=== PATIENT | male | born 1940 | race Caucasian/White ===

== ENCOUNTER 2020-08-12 09:28 | Day surgery (SDC) | payer OTHER, BC ==
[2020-08-05 10:38] VITALS: BMI 37.2
--- OUTSIDE RECORDS SUMMARY | 2020-08-12 09:35 | XMS ---
:1940 Author Organization [facility] Care Team Providers Name Role Phone Androne Manan C Unavailable Androne, C Unavailable Androne, C Unavailable Androne, C Unavailable Androne, C Unavailable Androne, C Unavailable Androne, C Unavailable Androne, C Unavailable Androne, C Unavailable Fader, M Unavailable Fader, M Unavailable Fader, M Unavailable Fader, M Unavailable Fader, M Unavailable Fader, M Unavailable Fader, M Unavailable Fader, M Unavailable Fader, M Unavailable Fader, M Unavailable Fader, M Unavailable Fader, M Unavailable Fader, M Unavailable Fader, M Unavailable Re-disclosure Warning The records that you are about to access may contain information from federally- assisted alcohol or drug abuse programs. If such information is present, then the following federally mandated warning applies: This information has been disclosed to you from records protected by federal confidentiality rules (42 CFR part 2). The federal rules prohibit you from making any further disclosure of this information unless further disclosure is expressly permitted by the written consent of the person to whom it pertains or as otherwise permitted by 42 CFR part 2. A general authorization for the release of medical or other information is NOT sufficient for this purpose. The Federal rules restrict any use of the information to criminally investigate or prosecute any alcohol or drug abuse patient.The records that you are about to access may contain highly sensitive health information, the redisclosure of which is protected by Article 27-F of the [facility] Public Health law. If you continue you may haveaccess to information: Regarding HIV / AIDS; Provided by facilities licensed or operated by the [facility] Office of Mental Health; or Provided by the [facility] Office for People With Developmental Disabilities. If such information is present, then the following [facility] mandated warning applies: This information has been disclosed to you from confidential records which are protected by state law. State law prohibits you from making any further disclosure of this information without the specific written consent of the person to whom it pertains, or as otherwise permitted by law. Any unauthorized further disclosure in violation of state law may result in a fine or custodial sentence or both. A general authorization for the release of medical or other information is NOT sufficient authorization for further disclosure. Encounters Encounter Providers Location Date Indications Data Source(s ) Attender: Manan 07/28/2020 [facility] ([facility] 12:00:00 AM [facility]T [facility]) Office Attender: Manan Faulkner 07/28/2020 12:00:00 AM EDT [facility] ([facility] Office Attender: Manan Faulkner 07/28/2020 12:00:00 AM EDT [facility] ([facility] Office Attender: Manan Faulkner 07/28/2020 12:00:00 AM EDT [facility] ([facility] Office Attender: Manan Faulkner 07/28/2020 12:00:00 AM EDT [facility] ([facility]) Office Attender: Ganesh Rose 05/22/2020 12:00:00 AM E DT [facility] ([facility]) Office Attender: Ganesh Rose 05/22/2020 12:00:00 AM E DT [facility] ([facility]) Office Attender: Ganesh Rose 05/22/2020 12:00:00 AM E DT [facility] ([facility]) Office Attender: Ganesh Rose 05/22/2020 12:00:00 AM E DT [facility] ([facility]) Office Attender: Ganesh Rose 05/22/2020 12:00:00 AM E DT [facility] ([facility]) Office Attender: Ganesh Rose 05/22/2020 12:00:00 AM E DT [facility] ([facility]) Office Attender: Ganesh Rose 05/22/2020 12:00:00 AM E DT [facility] ([facility]) Office Medications Medication Brand Start Product Dose Route Administrative Pharmacy [facility] Indications Reaction Description Data Name Date Form Instructions Instructions Source(s) atorvastati ATORVA 05/22/ TABLET 90 complet ATOR VASTATIN [facility] (St n 10 MG STATIN 2019 ed [facility] Tablet :19833 12:00: Medi jennifer, ATORVASTATI 2 00 AM ) [id number] EDT atorvastati ATORVA 05/22/ TABLET 90 complet ATOR VASTATIN [facility] (St n 10 MG STATIN 2019 ed [facility] Oral Tablet :38177 12:00: Medi jennifer, ATORVASTATI 2 00 AM ) [id number] EDT Allopurinol ALLOPU 05/22/ TABLET 180 complet ALLO PURINOL [facility] (St 100 MG Oral RINOL: 2020 ed [facility] Tablet [id number] 12:00: Medical, ALLOPURINOL 00 AM ) :[id number] EDT Hydrochloro HYDROC 05/22/ TABLET 90 complet HYDR OCHLOROT [facility] (St thiazide 25 HLOROT 2020 ed HIAZIDE Lit n's MG Oral HIAZID 12:00: Medical, Tablet E:3107 00 AM ) HYDROCHLORO 98 EDT THIAZIDE:31 0798 Furosemide FUROSE 05/22/ TABLET 30 complet FUROS EMIDE [facility] (St 40 MG Oral MIDE:3 2019 ed [facility] Tablet 76038 12:00: Medical, FUROSEMIDE: 00 AM PC) [id number] EDT valsartan VALSAR 05/22/ TABLET 90 complet VALSAR FREDERICK [facility] (St 160 MG Oral FREDERICK:34 2019 ed [facility] Tablet 9201 12:00: Medical, VALSARTAN:3 00 AM PC) [id number] EDT valsartan VALSAR 05/22/ TABLET 90 complet VALSAR FREDERICK [facility] (St 160 MG Oral FREDERICK:34 2019 ed [facility] Tablet 9201 12:00: Medical, VALSARTAN:3 00 AM PC) [id number] EDT Tamsulosin TAMSUL 05/22/ CAPSULE 90 complet TAMS ULOSIN [facility] (St hydrochlori OSIN:8 2019 ed [facility] de 0.4 MG 87005 12:00: Medical , Oral 00 AM PC) Capsule EDT TAMSULOSIN: [id number] Tamsulosin TAMSUL 05/22/ CAPSULE 90 complet TAMS ULOSIN [facility] (St hydrochlori OSIN:8 2019 ed [facility] de 0.4 [place] 20450 12:00: Medical , Oral 00 AM PC) Capsule EDT TAMSULOSIN: 178374 Allopurinol ALLOPU 05/22/ TABLET 180 complet ALLO PURINOL [facility] (St 100 MG Oral RINOL: 2020 ed [facility] Tablet [id number] 12:00: Medical, ALLOPURINOL 00 AM PC) :[id number] EDT Hydrochloro HYDROC 05/22/ TABLET 90 complet HYDR OCHLOROT [facility] (St thiazide 25 HLOROT 2019 ed HIAZIDE [facility] MG Oral HIAZID 12:00: Medical, Tablet E:3107 00 AM PC) HYDROCHLORO 98 EDT THIAZIDE:31 0798 Furosemide FUROSE 05/22/ TABLET 30 complet FUROS EMIDE [facility] (St 40 MG Oral MIDE:3 2019 ed [facility] Tablet 04946 12:00: Medical, FUROSEMIDE: 00 AM PC) [id number] EDT Insurance Providers Payer name Policy type Policy ID Covered Covered constitution party's Policy P blanca / Coverage constitution party ID relationship to [employer] ormation type dunn MEDICARE [id number] SP [id number] BC PPO [id number] SP [id number] 12 2 [place] [id number] 1 [id number] PART B 5 DOWNSTATE [employer] [id number] 1 [id number] 12 [facility] 2 E [employer] [place] MEDIC[place] [id number] SP [id number] 5 [place] [id number] 1 [id number] PART B 5 DOWNSTATE Problems, Conditions, and Diagnoses Code Display Name Description Problem Type Effective Data Sour ce(s) Dates H26.9 Unspecified UNSPECIFIED Problem 07/28/2020 [facility] (St cataract CATARACT 12:00:00 AM [facility]) Z01.818 Encounter for other ENCOUNTER FOR Problem 07/28/2020 ME DGEN (St preprocedural OTHER 12:00:00 AM [facility] examination PREPROCEDURAL EDT Medical, P C) EXAMINATION Z85.21 Personal history of PERSONAL HISTORY Problem 10/26/2019 [facility] (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 EST Medica l, PC) I87.2 Venous VENOUS Problem 10/26/2019 [facility] (St insufficiency INSUFFICIENCY 12:00:00 AM [facility] (chronic) (CHRONIC) EST Medical, PC) (peripheral) (PERIPHERAL) E78.5 Hyperlipidemia, HYPERLIPIDEMIA, Problem 10/26/2019 MEDG EN (St unspecified UNSPECIFIED 12:00:00 AM [facility] EST Medical, ) E66.09 Other obesity due OTHER OBESITY DUE Problem 10/26/2019 [facility] (St to excess calories TO EXCESS CALORIES 12:00:00 AM [facility] EST Medical, ) N40.1 Benign prostatic ENLARGED PROSTATE Problem 10/26/2019 M ISABELLAN (St hyperplasia with WITH LOWER URINARY 12:00:00 AM [facility] lower urinary tract TRACT SYMPTOMS EST edical, PC) symptoms M10.9 Gout, unspecified GOUT, UNSPECIFIED Problem 10/26/2019 [facility] (St 12:00:00 AM [facility] EST Medical, ) I10 Essential (primary) ESSENTIAL Problem 10/26/2019 MEDGE N (St hypertension (PRIMARY) 12:00:00 AM [facility] HYPERTENSION EST Medical, ) Z85.21 Personal history of PERSONAL HISTORY Problem 10/26/2019 [facility] (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 EST Medica l, ) I87.2 Venous VENOUS Problem 10/26/2019 [facility] (St insufficiency INSUFFICIENCY 12:00:00 AM [facility] (chronic) (CHRONIC) [facility] Medical, ) (peripheral) (PERIPHERAL) E78.5 Hyperlipidemia, HYPERLIPIDEMIA, Problem 10/26/2019 MEDG EN (St unspecified UNSPECIFIED 12:00:00 AM [facility], ) E66.09 Other obesity due OTHER OBESITY DUE Problem 10/26/2019 MED[facility] (St to excess calories TO EXCESS CALORIES 12:00:00 AM [facility], ) N40.1 Benign prostatic ENLARGED PROSTATE Problem 10/26/2019 M TADEO (St hyperplasia with WITH LOWER URINARY 12:00:00 AM [facility] lower urinary tract TRACT SYMPTOMS EST sraah, ) symptoms M10.9 Gout, unspecified GOUT, UNSPECIFIED Problem 10/26/2019 [facility] (St 12:00:00 AM [facility], ) I10 Essential (primary) ESSENTIAL Problem 10/26/2019 MEDGE N (St hypertension (PRIMARY) 12:00:00 AM [facility] HYPERTENSION [facility], ) Surgeries/Procedures Procedure Description Date Indications Data Source(s) Documentation of current 07/28/2020 [facility] ([facility] (procedure) 12:00:00 AM EDT YASMIN Pina) Documentation of current 07/28/2020 [facility] ([facility] (procedure) 12:00:00 AM EDT YASMIN Pina) Documentation of current 07/28/2020 [facility] ([facility] (procedure) 12:00:00 AM EDT YASMIN Pina) Documentation of current 07/28/2020 [facility] ([facility] (procedure) 12:00:00 AM EDT YASMIN Pina) Documentation of current 07/28/2020 [facility] ([facility] (procedure) 12:00:00 AM EDT YASMIN Pina) Documentation of current 07/28/2020 [facility] ([facility] (procedure) 12:00:00 AM EDT YASMIN Pina) Documentation of current 07/28/2020 [facility] ([facility] medications (procedure) 12:00:00 AM EDT [facility], ) ECG ROUTINE ECG W/LEAST 07/28/2020 MED[facility] EN ([facility] 12 LDS W/I&R 12:00:00 AM [facility], ) Documentation of current 05/22/2020 MED [facility] ([facility] medications (procedure) 12:00:00 AM T [facility], ) Documentation of current 05/22/2020 [facility] ([facility] (procedure) 12:00:00 AM T [facility], ) Documentation of current 05/22/2020 [facility] ([facility] (procedure) 12:00:00 AM T [facility], ) Documentation of current 05/22/2020 [facility] ([facility] (procedure) 12:00:00 AM T [facility], ) Documentation of current 05/22/2020 [facility] ([facility] (procedure) 12:00:00 AM T [facility], ) Documentation of current 05/22/2020 [facility] ([facility] (procedure) 12:00:00 AM T [facility], ) Documentation of current 05/22/2020 [facility] ([facility] (procedure) 12:00:00 AM T [facility], ) Documentation of current 05/22/2020 [facility] ([facility] (procedure) 12:00:00 AM T [facility], ) Documentation of current 05/22/2020 [facility] ([facility] (procedure) 12:00:00 AM T [facility], ) Annual wellness visit, 05/22/2020 MEDGE N ([facility] includes a personalized 12:00:00 AM EDT [facility], ) prevention plan of service (pps), subsequent visit ECG ROUTINE ECG W/LEAST 05/22/2020 MED[facility] EN ([facility] 12 LDS W/I&R 12:00:00 AM [facility], ) Documentation of current 05/22/2020 [facility] ([facility] (procedure) 12:00:00 AM T [facility], ) Documentation of current 05/22/2020 [facility] ([facility] (procedure) 12:00:00 AM T [facility], ) Documentation of current 05/22/2020 [facility] ([facility] (procedure) 12:00:00 AM YASMIN Brown) Documentation of current 05/22/2020 [facility] ([facility] (procedure) 12:00:00 AM YASMIN Brown) Documentation of current 05/22/2020 [facility] ([facility] (procedure) 12:00:00 AM YASMIN Brown) Annual wellness visit, 05/22/2020 MEDGE N ([facility] includes a personalized 12:00:00 AM YASMIN Brown) prevention plan of service (pps), subsequent visit ECG ROUTINE ECG W/LEAST 05/22/2020 [facility] EN ([facility] 12 LDS W/I&R 12:00:00 AM YASMIN Hancock) Documentation of current 11/16/2019 [facility] ([facility] (procedure) 12:00:00 AM YASMIN Win) Documentation of current 11/16/2019 [facility] ([facility] (procedure) 12:00:00 AM YASMIN Win) Documentation of current 11/16/2019 [facility] ([facility] (procedure) 12:00:00 AM YASMIN Win) Documentation of current 11/16/2019 [facility] ([facility] (procedure) 12:00:00 AM YASMIN Win) Documentation of current 11/16/2019 [facility] ([facility] (procedure) 12:00:00 AM YASMIN Win) Documentation of current 11/16/2019 [facility] ([facility] (procedure) 12:00:00 AM YASMIN Win) Documentation of current 11/16/2019 [facility] ([facility] (procedure) 12:00:00 AM YASMIN Win) OFFICE OUTPATIENT VISIT 11/16/2019 MED[facility] EN ([facility] 15 MINUTES 12:00:00 AM YASMIN Forbes) Documentation of current 11/16/2019 MED [facility] ([facility] (procedure) 12:00:00 AM YASMIN Win) Documentation of current 11/16/2019 [facility] ([facility] (procedure) 12:00:00 AM YASMIN Win) Documentation of current 11/16/2019 [facility] ([facility] (procedure) 12:00:00 AM YASMIN Win) Documentation of current 11/16/2019 [facility] ([facility] (procedure) 12:00:00 AM YASMIN Win) Documentation of current 11/16/2019 [facility] ([facility] (procedure) 12:00:00 AM YASMIN Win) Documentation of current 11/16/2019 [facility] ([facility] (procedure) 12:00:00 AM YASMIN Win) OFFICE OUTPATIENT VISIT 11/16/2019 [facility] EN ([facility] 15 MINUTES 12:00:00 AM YASMIN Forbes) Documentation of current 10/26/2019 [facility] ([facility] (procedure) 12:00:00 AM YASMIN Win) Documentation of current 10/26/2019 [facility] ([facility] (procedure) 12:00:00 AM YASMIN Win) Documentation of current 10/26/2019 [facility] ([facility] (procedure) 12:00:00 AM YASMIN Win) Documentation of current 10/26/2019 [facility] ([facility] (procedure) 12:00:00 AM YASMNI Win) Documentation of current 10/26/2019 [facility] ([facility] (procedure) 12:00:00 AM YASMIN Win) Documentation of current 10/26/2019 [facility] ([facility] (procedure) 12:00:00 AM YASMIN Win) Documentation of current 10/26/2019 [facility] ([facility] (procedure) 12:00:00 AM YASMIN Win) Documentation of current 10/26/2019 [facility] ([facility] (procedure) 12:00:00 AM YASMIN Win) Documentation of current 10/26/2019 [facility] ([facility] (procedure) 12:00:00 AM YASMIN Win) Documentation of current 10/26/2019 [facility] ([facility] (procedure) 12:00:00 AM YASMIN Win) Documentation of current 10/26/2019 [facility] ([facility] (procedure) 12:00:00 AM YASMIN Win) Documentation of current 10/26/2019 [facility] ([facility] (procedure) 12:00:00 AM [facility]) Documentation of current 10/26/2019 [facility] ([facility] (procedure) 12:00:00 AM YASMIN Win) Documentation of current 10/26/2019 [facility] ([facility] (procedure) 12:00:00 AM [facility]IANA sm[facility] PC) Documentation of current 10/26/2019 [facility] ([facility] (procedure) 12:00:00 AM YASMIN Win) Documentation of current 10/26/2019 [facility] ([facility] (procedure) 12:00:00 AM ILIANA smith PC) Documentation of current 10/26/2019 [facility] ([facility] (procedure) 12:00:00 AM YASMIN Win) Results ID Date Data Source [id number] 08/08/2020 09:45:00 AM EDT [facility] Name Value Range Interpretation Description Data Sup porting Code Source(s) Document(s ) SARS [facility] coronavirus 2 RNA This lab was ordered by LIZBETH MAGALLANES and reported by [facility]. Procedure Social History Code Duration Value Status Description Data Source(s ) Smoking 07/31/2020 Marital status: completed Marital status: MEDG EN (St 12:00:00 AM EDT - had - h ad [facility], TAVR 11/19-age 76 TAVR 11/19-age 76 PC ) Children: 3 Children: 3 Occupation: Occupation: retired retired - real - real estate estate Tobacco Tobacco use: former use: former smoker - quit 1982 smoker - quit Alcohol use: 2 1982 Alcohol cocktail every use: 2 cocktail night every night Smoking 07/31/2020 Unknown if ever completed Unknown if ever MEDG EN (St 12:00:00 AM EDT smoked smoked [facility]) Smoking 05/22/2020 Marital status: completed Marital status: MEDG EN (St 12:00:00 AM EDT - had - h ad [facility], TAVR 11/19-age 76 TAVR 11/19-age 76 PC ) Children: 3 Children: 3 Occupation: Occupation: retired retired - real - real estate estate Tobacco Tobacco use: former use: former smoker - quit 1982 smoker - quit Alcohol use: 2 1982 Alcohol cocktail every use: 2 cocktail night every night Smoking 05/22/2020 Unknown if ever completed Unknown if ever MEDG EN (St 12:00:00 AM EDT smoked smoked [facility], ) Vital Signs ID Date Data Source UNK Name Value Range Interpretation Code Description Data Source(s) Heart rate 90 /min 90 /min [facility] ([facility] ) Respiratory rate 17 /min 17 /min [facility] ( [facility]) Body mass index 37.7 kg/m2 37.7 kg/m2 MED[facility] (S t (BMI) [Ratio] [facility]) Diastolic blood 74 mm[Hg] 74 mm[Hg] MED[facility] (S t pressure [facility]) Systolic blood 128 mm[Hg] 128 mm[Hg] [facility] ([facility]) Body weight 278 lb 278 lb [facility] ([facility]) Body height 72 in 72 in [facility] ([facility]) Heart rate 91 /min 91 /min [facility] ([facility]) Inhaled oxygen 94 % 94 % [facility] ([facility]) Body mass index 38.6 kg/m2 38.6 kg/m2 MED[facility] (S t (BMI) [Ratio] [facility] [place], ) Diastolic blood 78 mm[Hg] 78 mm[Hg] MED[facility] (S t pressure [facility]) Systolic blood 122 mm[Hg] 122 mm[Hg] [facility] ([facility]) Body weight 285 lb 285 lb [facility] ([facility]) Body height 72 in 72 in [facility] ([facility]) Heart rate 91 /min 91 /min [facility] ([facility]) Inhaled oxygen 94 % 94 % [facility] ([facility]) Body mass index 38.6 kg/m2 38.6 kg/m2 MED[facility] (S t (BMI) [Ratio] [facility]) Diastolic blood 78 mm[Hg] 78 mm[Hg] MED[facility] (S t pressure [facility]) Systolic blood 122 mm[Hg] 122 mm[Hg] [facility] ([facility]) Body weight 285 lb 285 lb [facility] ([facility]) Body height 72 in 72 in [facility] ([facility]) Heart rate 86 /min 86 /min [facility] ([facility]) Respiratory rate 16 /min 16 /min [facility] ( [facility]) Inhaled oxygen 95 % 95 % [facility] ([facility], ) Body mass index 38.5 kg/m2 38.5 kg/m2 MED[facility] (S t (BMI) [Ratio] [facility], ) Diastolic blood 76 mm[Hg] 76 mm[Hg] MED[facility] (S t pressure [facility]) Systolic blood 126 mm[Hg] 126 mm[Hg] [facility] ([facility]) Body weight 284 lb 284 lb [facility] ([facility]) Body height 72 in 72 in [facility] ([facility]) Heart rate 86 /min 86 /min [facility] ([facility]) Respiratory rate 16 /min 16 /min [facility] ( [facility]) Inhaled oxygen 95 % 95 % [facility] ([facility]) Body mass index 38.5 kg/m2 38.5 kg/m2 MED[facility] (S t (BMI) [Ratio] [facility], ) Diastolic blood 76 mm[Hg] 76 mm[Hg] MED[facility] (S t pressure [facility]) Systolic blood 126 mm[Hg] 126 mm[Hg] [facility] ([facility]) Body weight 284 lb 284 lb [facility] ([facility]) Body height 72 in 72 in [facility] ([facility]) Heart rate 80 /min 80 /min [facility] ([facility]) Respiratory rate 17 /min 17 /min [facility] ( [facility]) Body temperature 98.4 F 98.4 F MED[facility] ( [facility]) Inhaled oxygen 95 % 95 % [facility] ([facility]) Body mass index 39.3 kg/m2 39.3 kg/m2 MED[facility] (S t (BMI) [Ratio] [facility]) Diastolic blood 60 mm[Hg] 60 mm[Hg] MED[facility] (S t pressure [facility]) Systolic blood 145 mm[Hg] 145 mm[Hg] [facility] ([facility]) Body weight 290 lb 290 [facility] Body height 72 in 72 in [facility] ([facility]) Heart rate 80 /min 80 /min [facility] Respiratory rate 17 /min 17 /min [facility] ( [facility]) Body temperature 98.4 F 98.4 F [facility] ( [facility]) Inhaled oxygen 95 % 95 % [facility] Body mass index 39.3 kg/m2 39.3 kg/m2 MED[facility] (S t (BMI) [Ratio] [facility]) Diastolic blood 60 mm[Hg] 60 mm[Hg] MEDGEN (S t [facility]) Systolic blood 145 mm[Hg] 145 mm[Hg] [facility] ([facility]) Body weight 290 lb 290 lb [facility] ([facility]) Body height 72 in 72 in [facility] ([facility])
[2020-08-12] MEDS ORDERED: OFLOXACIN 0.3% OPHTHALMIC SOLUTION 5 ML BOTTLE ONE (09:37)
[2020-08-12] MEDS ORDERED: CYCLOPENTOLATE HCL 1% OPHTH SOLN 2 ML BOTTLE ONE (09:37)
[2020-08-12] MEDS ORDERED: PHENYLEPHRINE 2.5% OPHTH SOLN 15 ML BOTTLE ONE (09:37)
[2020-08-12] MEDS ORDERED: KETOROLAC TROMETHAMINE 0.5% EYE DROP 1 DROP DROPS ONE (09:37)
[2020-08-12] MEDS ORDERED: TROPICAMIDE 1% OPHTH SOLN 15 ML BOTTLE ONE (09:37)
[2020-08-12 10:04] VITALS: TEMP 98.3
[2020-08-12] MEDS: OFLOXACIN 0.3% OPHTHALMIC SOLUTION 5 ML BOTTLE OS SCH ×5 (10:10→10:30)
[2020-08-12] MEDS: TROPICAMIDE 1% OPHTH SOLN 15 ML BOTTLE OS SCH ×5 (10:10→10:30)
[2020-08-12] MEDS: KETOROLAC TROMETHAMINE 0.5% EYE DROP 1 DROP DROPS OS SCH ×5 (10:10→10:30)
[2020-08-12] MEDS: PHENYLEPHRINE 2.5% OPHTH SOLN 15 ML BOTTLE OS SCH ×4 (10:10→10:30)
[2020-08-12] MEDS: CYCLOPENTOLATE HCL 1% OPHTH SOLN 2 ML BOTTLE OS SCH ×5 (10:10→10:30)
[2020-08-12] MEDS ORDERED: NEO/POLYMYX B SULF/DEXAMETH OPHTHALMIC 5ML BOTTLE ONE ×2 (11:29→14:45)
[2020-08-12] MEDS ORDERED: BETAXOLOL HCL 0.25% OPHTHALMIC 10 ML DROPSBTL ONE ×2 (11:29→14:45)
[2020-08-12] MEDS ORDERED: EPI-SHUGARCAINE (EPINEPHRINE 0.025% & LIDOCAINE-PF 0.75%) 4ML ONE ×2 (11:29→14:45)
[2020-08-12] MEDS ORDERED: POVIDONE-IODINE 5% OPHTHALMIC PREP 30 ML SOLUTION ONE ×2 (11:29→14:45)
[2020-08-12] MEDS ORDERED: BACITRACIN/POLYMYXIN OPH OINT 3.5 GM TUBE ONE ×2 (11:29→14:44)
[2020-08-12] MEDS ORDERED: TETRACAINE 0.5% OPHTH SOLN 2 ML BOTTLE ONE ×2 (11:29→14:45)
[2020-08-12] MEDS ORDERED: EPINEPHrine/PF 1 MG/1 ML (1:1,000) AMPULE ONE (11:30)
[2020-08-12] MEDS ORDERED: MIDAZOLAM HCL 2 MG/2 ML SINGLE DOSE VIAL ONE (11:38)
[2020-08-12] MEDS ORDERED: BSS (NA/CA/MG/K) BALANCED SALT SOLUTION OPHTH SOLN 15 ML BOTTLE ONE (12:30)
[2020-08-12] MEDS ORDERED: ACETAMINOPHEN 325 MG TABLET (FP) PO PRN (12:45)
--- NOTE | 2020-08-12 13:18 | OP ---
DATE OF OPERATION: 08/12/2020 AGE: [age] years old. SEX: Male. PREOPERATIVE DIAGNOSIS: Cataract, left eye. POSTOPERATIVE DIAGNOSIS: Cataract, left eye. PROCEDURE: Cataract extraction via phacoemulsification with insertion of posterior chamber lens implant, left eye. SURGEON: Jose Alejandro Morejon MD QUALITY CHECKER: Anahi Marie MD ANESTHESIA: Topical with sedation. ESTIMATED BLOOD LOSS: Less than 1 mL. COMPLICATIONS: None. SPECIMENS: None. DESCRIPTION OF PROCEDURE: The patient was identified in the holding area. After all risks, benefits, and alternatives were explained to the patient, informed consent was obtained. The left eye was marked with a marking pen. The patient then entered the operating room on an eye stretcher. After a formal timeout was performed, topical tetracaine eye drops were instilled onto the left eye. The left eye was then prepped and draped in the usual sterile fashion. An eyelid speculum was placed beneath the eyelids of the left eye. An inferotemporal paracentesis incision was created using a 15-degree blade. Preservative-free epinephrine and preservative-free lidocaine were then injected into the anterior chamber. Viscoelastic was then injected into the anterior chamber. A 2.4-mm keratome blade was then used to make a superotemporal incision. A 360-degree, continuous curvilinear capsulorrhexis was then created using bent cystotome and Utrata forceps. Hydrodissection was performed using balanced saline solution on a cannula. Phacoemulsification was introduced to disassemble and remove the nucleus in its entirety. Irrigation/aspiration was then used to remove any remaining cortical material from the eye. The capsular bag was reformed using viscoelastic. An Ace model [id number] with a power of 19.0 diopters, serial number [id number] was inspected, found to be defect free, and injected into the capsular bag. Irrigation/aspiration was then used to remove any remaining viscoelastic from the eye. All wounds were hydrated with balanced saline solution, noted to be watertight. There was a red reflex present. The anterior chamber was deep. The eye had adequate pressure, and the lens was perfectly centered in the capsular bag. The eye speculum was removed from the left eye. Topical antibiotic eye drops and ointment were then administered to the left eye. The patient tolerated the procedure well, left the operating room in stable condition to follow up in the eye clinic tomorrow morning at 10:00. JOSE ALEJANDRO MOREJON M.D. MIRANDA/[id number]
[2020-08-12 13:24] VITALS: BP 151/81; PULSE 68
== END 2020-08-12 13:25 | disposition home or self-care (01) ==
LOC: FASU 09:28
PROVIDERS: ATTEND Ophthalmology
PROC: 08RK3JZ Replacement of Left Lens with Synthetic Substitute, Percutaneous Approach (ICD-10-PCS; principal; 2020-08-12 11:48)
DX: H26.9 Unspecified cataract (principal)